=== PATIENT | female | born 1975 | race Two or more races ===

== ENCOUNTER 2023-05-03 15:43 | Emergency (ER) | payer SELFPAY ==
[2023-05-03] MEDS ORDERED: Gabapentin 300 MG Cap PO ONE (17:26)
[2023-05-03] MEDS ORDERED: Ondansetron 4 MG/2 ML SDV IM ONE (17:27)
[2023-05-03] MEDS ORDERED: HYDROmorphone 1 MG/ML Syringe IM ONE (18:22)
[2023-05-03] MEDS ORDERED: Take Home: Acetaminophen/oxyCODONE 325-5 MG, 5 Tab Pack PO ONE (19:12)
== END 2023-05-03 19:35 | disposition home or self-care (01) ==
LOC: DL.ED 15:43
DX: M54.12 Radiculopathy, cervical region (principal)
CPT/HCPCS: 96372; 99283; A9270-GY; J1170; J2405

== ENCOUNTER 2023-07-21 19:41 | Emergency (ER) | payer SELFPAY ==
[2023-07-21 20:43] LABS: AMPHETAMINES,URINE NEGATIVE (NEGATIVE); BARBITURATES,URINE NEGATIVE (NEGATIVE); BENZODIAZEPINE,URINE NEGATIVE (NEGATIVE); MDMA (ECSTASY), URINE NEGATIVE (NEGATIVE); METHADONE,URINE NEGATIVE (NEGATIVE); METHAMPHETAMINES,URINE NEGATIVE (NEGATIVE); OPIATES,URINE NEGATIVE (NEGATIVE); OXYCODONE,URINE NEGATIVE (NEGATIVE); PHENCYCLIDINE,URINE NEGATIVE (NEGATIVE); TCA,URINE NEGATIVE (NEGATIVE)
[2023-07-21 20:43] LABS: BASOPHILS PERCENT AUTO 0.8 % (0.0-1.0); HEMATOCRIT 39.2 % (37.0-47.0); HEMOGLOBIN 12.7 g/dL (12.0-16.0); LYMPHOCYTES PERCENT AUTO 28.7 % (20.5-50.1); MEAN CORPUSCULAR HEMOGLOBIN 28.5 pg (27.0-34.0); MEAN CORPUSCULAR HGB CONC 32.4 g/dL (33.0-35.0); MEAN CORPUSCULAR VOLUME 87.9 fL (80-100); MONOCYTES PERCENT AUTO 7.8 % (2-8); NEUTROPHILS PERCENT AUTO 61.7 % (42.2-75.2); PLATELET COUNT,PLT 346 10^3/uL (150-450); RED BLOOD CELL COUNT 4.46 10^6/uL (4.2-5.4)
[2023-07-21 20:57] LABS: ALBUMIN 3.3 g/dL (3.4-5.0); ANION GAP 13.2 mEq/L (7-13); BILIRUBIN TOTAL 0.3 mg/dL (0.2-1.0); BUN/CREATININE RATIO 17.8 (No establ ref range); C-REACTIVE PROTEIN 1.08 ng/dL (<=0.50); CALCIUM 8.6 mg/dL (8.5-10.1); CREATININE 0.73 mg/dL (0.55-1.02); EST CRCL DRUG DOSING (CG) 93.64 mL/min; POTASSIUM,K 4.2 mmol/L (3.5-5.1); PROTEIN TOTAL,TP 7.4 g/dL (6.4-8.2)
[2023-07-21 21:08] LABS: A/G RATIO 0.8
[2023-07-21] MEDS ORDERED: Take Home: Cyclobenzaprine 10 MG Tab, 4 Tab Pack PO ONE (21:33)
== END 2023-07-21 22:21 | disposition home or self-care (01) ==
LOC: DL.ED 19:41
DX: M62.838 Other muscle spasm (principal); M54.12 Radiculopathy, cervical region
CPT/HCPCS: 36415; 72125; 80053; 80305-QW; 81025; 85025; 86140; 96374; 99284; 99284-25; A9270-GY; J3360